=== PATIENT | female | born 1970 | race American Indian/Alaskan Native ===

== ENCOUNTER 2017-10-19 11:09 | Outpatient (CLI) | payer BC ==
--- NOTE | 2017-10-19 15:38 | Mammography Report ---
BILATERAL DIGITAL SCREENING MAMMOGRAM with CAD: 10/19/17 11:09:00 CLINICAL: Routine screening. COMPARISON:None. FINDINGS: There are bilateral scattered fibroglandular densities. Right asymmetries require additional imaging.No architectural distortion or suspicious calcifications.The left breast is negative. IMPRESSION: Right asymmetries requiring further workup. BI-RADS CATEGORY: 0 -- Additional Imaging Evaluation Required RECOMMENDATION: Recall for right lateralmedial and spot magnification MLO and CC views and right breast ultrasound if needed. ACR BI-RADS MAMMOGRAPHIC CODES: 0 = Needs additional imaging evaluation; 1 = Negative; 2 = Benign; 3 = Probably benign; 4 = Suspicious; 5 = Malignant; 6 = Known biopsy-proven malignancy COMMENT: 1. Dense breast tissue, i.e., adenosis, fibrocystic changes, etc., may obscure an underlying neoplasm. 2. Approximately 10% of cancers are not detected with mammography. 3. A negative mammography report should not delay biopsy if a clinically suspicious mass is present. COMMENT: Patient follow-up letters are generated via our [employer] application.
== END 2017-10-19 11:10 | disposition home or self-care (01) ==
LOC: MAMMO 11:09
PROVIDERS: ATTEND Obstetrics & Gynecology
DX: Z12.31 Encounter for screening mammogram for malignant neoplasm of breast (principal)
CPT/HCPCS: 77067

== ENCOUNTER 2018-11-19 09:55 | Outpatient (CLI) | payer BC ==
--- NOTE | 2018-11-21 11:59 | Mammography Report ---
DIGITAL SCREENING MAMMOGRAM WITH CAD, 11/19/2018 INDICATION: Routine screening mammography. TECHNIQUE: Digital bilateral 2D mammography was obtained in the craniocaudal and mediolateral obliq ue projections. This examination was interpreted with the benefit of Computer-Aided Detection analysi s. COMPARISON: 10/19/2017 and 09/10/2015 FINDINGS: Breast Density: The breasts are heterogeneously dense, which may obscure small masses. Right parenchymal asymmetries require additional imaging. No architectural distortion or suspicious c alcifications. There is no evidence of dominant mass, suspicious calcifications or architectural dist ortion in the left breast. IMPRESSION: Right asymmetries requiring further workup. Recommend recall for right lateral medial, ro lled CC and spot compression MLO and CC views and right breast ultrasound if needed. Follow up recommendation: Special View: Spot Category 0: Incomplete. Needs additional imaging evaluation and/or prior mammograms for comparison. A "normal" or negative report should not discourage follow up or biopsy of a clinically significant f inding. A written summary of these findings will be mailed to the patient. The patient will be entered into a mammography reporting system which will generate a reminder letter for the patient's next appointmen t at the appropriate interval. The [employer] recommends yearly mammograms starting at age 40 and continuing as l mary as a woman is in good health. Breast MRI is recommended for women with an approximate 20-25% or greater lifetime risk of breast cancer, including women with a strong family history of breast or ova karri cancer or who have been treated for Hodgkin's disease. Signer Name: Washington Washington MD Signed: 11/21/2018 11:55 AM Workstation Name: [id number]
== END 2018-11-19 09:56 | disposition home or self-care (01) ==
LOC: MAMMO 09:55
PROVIDERS: ATTEND Obstetrics & Gynecology
DX: Z12.31 Encounter for screening mammogram for malignant neoplasm of breast (principal)
CPT/HCPCS: 77067

== ENCOUNTER 2019-01-02 10:13 | Outpatient (CLI) | payer BC ==
--- NOTE | 2019-01-02 11:03 | Mammography Report ---
DIGITAL RIGHT DIAGNOSTIC MAMMOGRAM WITH CAD, WITHOUT TOMOSYNTHESIS 01/02/2019 INDICATION: SPOT COMPRESSION/INCONCLUSIVE MAMMO TECHNIQUE: Digital right mammographic imaging was performed. Spot compression views were obtained. This examination was interpreted with the benefit of Computer-aided Detection analysis. COMPARISON: 11/19/2018 screening. Breast Density: The breasts are heterogeneously dense, which may obscure small masses. FINDINGS: Right lateral, rolled CC and spot compression views were obtained and are negative. Satisfa ctory effacement of asymmetries. No architectural distortion. IMPRESSION: No mammographic evidence of malignancy. Follow up recommendation: Routine BI-RADS Category 1: Negative. A "normal" or negative report should not discourage follow up or biopsy of a clinically significant f inding. A written summary of these findings will be mailed to the patient. The patient will be entered into a mammography reporting system which will generate a reminder letter for the patient's next appointmen t at the appropriate interval. According to the [employer], yearly mammograms are recommended starting at age 40 and continuing as long as a woman is in good health. Breast MRI is recommended for women with an tammy roximately 20-25% or greater lifetime risk of breast cancer, including women with a strong family his tory of breast or ovarian cancer and women who have been treated for Hodgkin's disease. Signer Name: Washington Washington MD Signed: 01/02/2019 10:58 AM Workstation Name: [id number]
== END 2019-01-02 10:14 | disposition home or self-care (01) ==
LOC: MAMMO 10:13
PROVIDERS: ATTEND Obstetrics & Gynecology
DX: R92.2 Inconclusive mammogram (principal)

== ENCOUNTER 2019-11-27 07:38 | Outpatient (CLI) | payer BC ==
--- NOTE | 2019-11-27 08:46 | Mammography Report ---
BILATERAL DIGITAL SCREENING MAMMOGRAM WITH CAD HISTORY: SCREENING MAMMOGRAM TECHNIQUE: Routine digital mammographic imaging performed. This examination was interpreted with tsering aguilar benefit of Computer-aided Detection analysis. COMPARISON: 01/02/2019, 11/19/2018, 10/19/2017. FINDINGS: Breast Density: scattered fibroglandular appearance of the breast tissue. Digital CC and MLO views demonstrate no mammographic evidence of malignancy. IMPRESSION: No mammographic evidence of malignancy. If the clinical examination remains stable, recommend bilate ral mammogram in approximately one year. BIRADS 1: Negative. FURTHER INFORMATION: According to the [employer], yearly mammograms are recommend ed starting at age 40 and continuing as long as a woman is in good health. Clinical Breast Exams shou ld be part of a periodic health exam-about every 3 years for women in their 20s and 30s and every yea r for women 40 and over. Breast self exam is an option for women starting in their 20s. Any breast ch ronny noted on a breast self exam should be reported promptly to the patient's healthcare provider. Br east MRI is recommended for women with an approximately 20-25% or greater lifetime risk of breast can cer, including women with a strong family history of breast or ovarian cancer and women who have been treated for Hodgkin's disease. A negative Mammography report should not discourage follow up or biopsy of a clinically significant f inding and/or abnormality. Dense breast tissue may obscure small neoplasms. The patient will be entered into a reminder system with a target due date for the next screening mamm ogram. Signer Name: Bernardo Soto MD Signed: 11/27/2019 8:41 AM Workstation Name: [id number]
== END 2019-11-27 07:39 | disposition home or self-care (01) ==
LOC: MAMMO 07:38
PROVIDERS: ATTEND Obstetrics & Gynecology
DX: Z12.31 Encounter for screening mammogram for malignant neoplasm of breast (principal)
CPT/HCPCS: 77067

== ENCOUNTER 2020-11-30 09:44 | Outpatient (CLI) | payer OTHER ==
--- NOTE | 2020-11-30 11:54 | Mammography Report ---
DIGITAL SCREENING MAMMOGRAM WITH CAD, 11/30/2020 CLINICAL INFORMATION / INDICATION: Routine screening mammography. TECHNIQUE: Digital bilateral 2D mammography was obtained in the craniocaudal and mediolateral obliqu e projections. This examination was interpreted with the benefit of Computer-Aided Detection analysis . COMPARISON: 11/27/2019, 01/02/2019, 11/19/2018 FINDINGS: Breast Density: There are scattered areas of fibroglandular density. No dominant mass, suspicious calcifications, or architectural distortion in either breast. IMPRESSION: No mammographic evidence of malignancy. Follow up recommendation: Routine yearly BI-RADS Category 1: Negative. A "normal" or negative report should not discourage follow up or biopsy of a clinically significant f inding. A written summary of these findings will be mailed to the patient. The patient will be entered into a mammography reporting system which will generate a reminder letter for the patient's next appointmen t at the appropriate interval. The [employer] recommends yearly mammograms starting at age 40 and continuing as l mary as a woman is in good health. Breast MRI is recommended for women with an approximate 20-25% or greater lifetime risk of breast cancer, including women with a strong family history of breast or ova karri cancer or who have been treated for Hodgkin's disease. Signer Name: Brianna Michael MD Signed: 11/30/2020 11:50 AM Workstation Name: [id number]
== END 2020-11-30 09:45 | disposition home or self-care (01) ==
LOC: MAMMO 09:44
PROVIDERS: ATTEND Obstetrics & Gynecology
DX: Z12.31 Encounter for screening mammogram for malignant neoplasm of breast (principal)
CPT/HCPCS: 77067

== ENCOUNTER 2020-12-18 07:02 | Day surgery (SDC) | payer OTHER ==
--- NOTE | 2020-12-16 10:19 | History and Physical Report ---
History of Present Illness Date of examination: 12/11/20 Date of admission: 12/18/20 Chief complaint: here for surgery History of present illness: Visit Type: Pre-Op CC: no complaints. History of Present Illness: pt. presents for Pre-Op VIsit; no c/o. Surgery is scheduled for 12/18/2020. Mask, Patient denies fever, cough, shortness of breath and exposure to COVID-19. .....................................................................Celestinebryontyron Diez December 11, 2020 9:15 AM Pt presents for preop apt for BTL . All risk/benefits/alternatives were d/w pt and questions were addressed and answered. She desires placement of fleshi clips for the procedrue. Risk of failure was d/w compared to salpingectomy as well as small risk of ovarian cancers related to fibria of the tubes were d/w pt. She expressed understanding and desires the felshi clips. Vital Signs: Patient Profile: 50 Years Old Female Height: 62 inches (157.48 cm) Weight: 207 pounds BMI: 37.86 Temp: 98.0 degrees F BP sittin / 74 (left arm) Menstrual History: LMP - Character: no menses-DEPO Current Method of Contraception: Depo-Provera Past History : 3 Term Births: 1 Premature Births: 0 Living Children: 1 Para: 1 Mult. Births: 0 Prev : 0 Prev. attempt? 0 Aborta: 2 Elect. Ab: 2 Spont. Ab: 0 Ectopics: 0 TIMBER HAND History Operations: Benign bubba tumor removed (2014) D&C: x2 EAB Abnormal PAP: positive Uterine Anomaly: negative Infection History HIV Risk Eval: no Personal hx. of genital herpes: no Hx of STD: Trichomonas Active Medications (reviewed today): DEPO-PROVERA 150 MG/ML INTRAMUSCULAR SUSPENSION (MEDROXYPROGESTERONE ACETATE) 1 inj x every 12 weeks ZYRTEC ALLERGY TABLET (CETIRIZINE HCL TABS) B-12 CAPSULE (CYANOCOBALAMIN CAPS) HYZAAR TABLET (LOSARTAN POTASSIUM-HCTZ TABS) Current Allergies (reviewed today): * ASPRIN (Critical) * PENICILLIN (Critical) Past Medical History: Reviewed history from 11/23/2020 and no changes required: Ovarian Cysts Hyperlipidemia Past Surgical History: Reviewed history from 11/23/2020 and no changes required: Benign bubba tumor removed (2014) D&C: x2 EAB Family History Summary: Reviewed history Last on 11/23/2020 and no changes required:12/17/2020 Other Family Member - Has No Family History of Ovarvian Cancer - Entered On: 03/30/2017 Other Family Member - Has No Family History of Colon Cancer - Entered On: 03/30/2017 Other Family Member - Has Family History Breast Cancer - Entered On: 03/30/2017 Other Family Member - Has Family History of Hypertension - Entered On: 03/30/2017 Other Family Member - Has Family History of Diabetes - Entered On: 03/30/2017 Social History: Reviewed history from 09/14/2017 and 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 Risk Factors: Smoked Tobacco Use: Never smoker Smokeless Tobacco Use: Never Passive Smoke Exposure: no HIV High Risk Behavior: no Exercise: no Seatbelt Use: 100 % PAP Smear History: Date of Last PAP Smear: 11/23/2020 Results: Normal Alcohol Use: yes Type: occ Drinks per day: social Drug Use: no [ROS-CCC] [Labs In-House] Physical Exam Appearance: well developed, well nourished, no acute distress Other Exams Lungs: no rales, rhonchi, or wheezes Heart: S1, S2, no murmur, rub, or gallop Abdomen: soft, non-tender, no masses, bowel sounds normal Extremities: normal alignment, no joint enlargement, crepitus, masses or tenderness; normal tone and strength Genitourinary Exam Comments: deferred until EUA Past History Past Medical History: other (see hpi) Past Surgical History: other (see hpi) TIMBER HAND History: other (see hpi) Family/Genetic History: other (see hpi) Social history: other (see hpi) Medications and Allergies Allergies Allergy/AdvReac Type Severity Reaction Status Date / Time aspirin Allergy THROAT Unverified 12/14/20 07:22 CLOSES UP Penicillins Allergy Swelling Verified 12/14/20 07:25 Home Medications Medication Instructions Recorded Confirmed Last Taken Type Cyanocobalamin (Vitamin B-12) 2,500 mcg PO QWEEK 12/14/20 12/14/20 Unknown History [Vitamin B12] Losartan/Hydrochlorothiazide 1 each PO DAILY 12/14/20 12/14/20 Unknown History [Losartan-Hctz 100-12.5 mg Tab] Review of Systems All systems: negative - Physical Exam Cardiovascular: Normal S1, Normal S2 Lungs: Positive: Clear to auscultation, Normal air movement Abdomen: Positive: normal appearance, soft. Negative: distention, tenderness, guarding Genitourinary (Female): Positive: other (deferred until EUA) Extremities: Positive: normal. Negative: tenderness, edema Deep Tendon Reflex Grade: Normal +2 Results Result Diagrams: 12/16/20 10:15 12/16/20 10:15 All other labs normal. Assessment and Plan - Patient Problems (1) Encounter for sterilization Status: Acute Plan to address problem: -admit for above stated procedure -consent signed and placed on the chart.
[2020-12-16 10:51] LABS: Hematocrit 46.3 % (30.3-42.9); Hemoglobin 15.1 gm/dl (10.1-14.3); Mean Corpuscular HGB Conc 33 % (30-34); Mean Corpuscular Volume 84 fl (79-97); Platelet Count 261 K/mm3 (140-440); Red Cell Distribution Width 14.1 % (13.2-15.2)
[2020-12-16 11:08] LABS: BUN/Creatinine Ratio 11; Blood Urea Nitrogen 10 mg/dL (7-17); Calcium 9.1 mg/dL (8.4-10.2); Hemolysis Index 15
[~2020-12-18 07:02] MED LIST: ACETAMINOPHEN 500 MG TAB PO SCH; GABAPENTIN 300 MG CAP PO NR; LACTATED RINGERS 1,000 ML IV SCH; MIDAZOLAM 2 MG/2 ML INJ IV NR; SCOPOLAMINE TRANSDERMAL PATCH 72 HR TD NR
[2020-12-18] MEDS ORDERED: BUPIVACAINE/PF (0.5%) 5 MG/1 ML 30 ML VIAL INFILTRATI ONE ×2 (07:16→08:33)
[2020-12-18] MEDS ORDERED: oxyCODONE /ACETAMINOPHEN 5-325MG TAB PO PRN (07:31)
[2020-12-18] MEDS ORDERED: ONDANSETRON 4 MG/2 ML INJ IV PRN (07:31)
[2020-12-18] MEDS ORDERED: HYDROmorphone 1 MG/1 ML INJ IV PRN (07:31)
--- NOTE | 2020-12-18 07:31 | Anesthesia Day of Surgery ---
Anesthesia Day of Surgery - Day of Surgery Patient Examined: Yes Patient H&P Reviewed: Yes Patient is NPO: Yes
--- NOTE | 2020-12-18 07:31 | Anesthesia Consultation ---
Anesthesia Consult and Med Hx Date of service: 12/18/20 - Airway Anesthetic Teeth Evaluation: Good ROM Head & Neck: Adequate Mental/Hyoid Distance: Adequate Mallampati Class: Class II Intubation Access Assessment: Probably Good - Pre-Operative Health Status ASA Pre-Surgery Classification: ASA2 Proposed Anesthetic Plan: General - Pulmonary Hx Smoking: No Hx Respiratory Symptoms: No - Cardiovascular System Hx Hypertension: Yes Hx Heart Attack/AMI: No - Central Nervous System CVA: No - Endocrine Hx Renal Disease: No Hx Liver Disease: No Hx Insulin Dependent Diabetes: No Hx Non-Insulin Dependent Diabetes: No Hx Thyroid Disease: No - Other Systems Hx Obesity: Yes (BMI 37) - Additional Comments Anesthesia Medical History Comments: No hx anesthetic complications.
[2020-12-18] MEDS ORDERED: LIDOCAINE MPF (2%) 20 MG/1 ML VIAL 5 ML ONE (07:39)
[2020-12-18] MEDS ORDERED: ROCURONIUM 50 MG/5 ML INJ IV ONE (07:39)
[2020-12-18] MEDS ORDERED: propofoL 200 MG/20 ML VIAL IV ONE (07:40)
[2020-12-18] MEDS ORDERED: fentaNYL 100 MCG/2 ML INJ ONE (07:40)
[2020-12-18] MEDS ORDERED: GENTAMICIN/NS 80 MG/100 ML 100 ML IV ONE (07:46)
[2020-12-18] MEDS ORDERED: NEOSTIGMINE 10MG/10 ML INJ MDV ONE (08:33)
[2020-12-18] MEDS ORDERED: dexAMETHasone 20 MG/5 ML VIAL ONE (08:33)
[2020-12-18] MEDS ORDERED: GLYCOPYRROLATE 0.4 MG/2 ML INJ ONE (08:33)
[2020-12-18] MEDS ORDERED: ONDANSETRON 4 MG/2 ML INJ ONE (08:33)
--- NOTE | 2020-12-18 08:56 | Operative Report ---
Operative Report Operative Report: Date of procedure: 12/18/2020 Pre-operative diagnosis: Desires permanent sterilization Post-operative diagnosis: Same Procedure name(s): Laparoscopic bilateral tubal ligation via placement of Filshie clips Exam under anesthesia Surgeon: Erin Pires MD Building Principal: ANUJA Anesthesia: General endotracheal anesthesia EBL: Minimal Urine output: 100 mL of clear urine out via straight catheterization prior to the onset of the procedure. Fluids: 900 mL Findings: Grossly normal fallopian tubes bilaterally normal ovaries bilaterally normal uterus. Indications: Patient desires sterilizon. All risks benefits and alternatives were discussed with the patient. Given the risks patient desired bilateral marv cement of Filshie clips. Consents were signed and placed on the chart. Procedure: Patient was taken to the operating room and which she was placed under general endotracheal anesthesia. Patient was then prepped and draped in sterile fashion and placed in dorsal lithotomy position in Jean stirrups. Patient underwent straight catheterization. Attention was then turned to the vagina in which a sponge stick was placed. Attention was then turned to the umbilicus and which an infraumbilical incision was made with the scalpel 5mm trocar was placed using direct visualization with the camera. Abdomen was then insufflated with gas. Under direct visualization a 8 mm trocar were placed. Attention was turned to the right fallopian tube in which the Filshie clip fisheries inspector was placed inside the abdomen Filshie clips were placed encompassing the entire tube. This was repeated on the left side. All instruments were removed from the abdomen. All gas was also released from the abdomen. The skin was approximated with 4-0 Monocryl in a subcuticular stitch. The patient tolerated procedure well. Sponge, lap, and needle counts were all correct x3 the patient was taken to the recovery room awake and in stable condition.
--- NOTE | 2020-12-18 08:57 | Short Stay Summary ---
Short Stay Documentation - History Social history: other (see hpi) - Allergies and Medications Current Medications: Allergies aspirin Allergy (Unverified 12/14/20 07:22) THROAT CLOSES UP Penicillins Allergy (Verified 12/14/20 07:25) Swelling Home Medications Medication Instructions Recorded Confirmed Last Taken Type Cyanocobalamin (Vitamin B-12) 2,500 mcg PO QWEEK 12/14/20 12/18/20 12/11/20 09:00 History [Vitamin B12] Losartan/Hydrochlorothiazide 1 each PO DAILY 12/14/20 12/18/20 12/17/20 09:00 History [Losartan-Hctz 100-12.5 mg Tab] Ibuprofen [Motrin 800 MG tab] 800 mg PO Q8HR PRN #30 tablet 12/18/20 Unknown Rx oxyCODONE /ACETAMINOPHEN [Percocet 1 tab PO Q4HR #10 tab 12/18/20 Unknown Rx 5/325] Active Medications Acetaminophen (Acetaminophen 500 Mg Tab) 1,000 mg PO PREOP CONRADO Last Admin: 12/18/20 07:20 Dose: 1,000 mg Documented by: Gabapentin (Gabapentin 300 Mg Cap) 300 mg PO PREOP NR Stop: 12/18/20 23:59 Last Admin: 12/18/20 07:20 Dose: 300 mg Documented by: Hydromorphone HCl (Hydromorphone 1 Mg/1 Ml Inj) 0.5 mg IV Q10MIN PRN PRN Reason: Pain , Severe (7-10) Lactated Ringer's (Lactated Ringers) 1,000 mls @ 100 mls/hr IV DIRECT CONRADO Stop: 12/18/20 23:59 Last Admin: 12/18/20 07:29 Dose: 100 mls/hr Documented by: Clindamycin HCl (Cleocin 900 Mg/50 Ml) 900 mg in 50 mls @ 100 mls/hr IV PREOP NR; Protocol Stop: 12/18/20 19:00 Midazolam HCl (Midazolam 2 Mg/2 Ml Inj) 2 mg IV PREOP NR Stop: 12/18/20 23:59 Last Admin: 12/18/20 07:47 Dose: 2 mg Documented by: Ondansetron HCl (Ondansetron 4 Mg/2 Ml Inj) 4 mg IV ONCE PRN PRN Reason: Nausea And Vomiting Oxycodone/Acetaminophen (Oxycodone /Acetaminophen 5-325mg Tab) 1 tab PO ONCE PRN PRN Reason: Pain, Moderate (4-6) Scopolamine (Scopolamine Transdermal Patch 72 Hr) 1 each TD PREOP NR Stop: 12/18/20 23:59 Last Admin: 12/18/20 07:35 Dose: 1 each Documented by: - Discharge Diagnoses (1) Encounter for sterilization Status: Acute Short Stay Discharge Plan Wound: open to air, keep clean and dry Additional Instructions: KEEP SCHEDULED APT IN THE OFFICE IN ONE WEEK WITH DR. LABOY Follow up with: DAJA PASTRANA MD [Primary Care Provider] - 7 Days Prescriptions: Ibuprofen [Motrin 800 MG tab] 800 mg PO Q8HR PRN #30 tablet PRN Reason: Pain, Moderate (4-6) oxyCODONE /ACETAMINOPHEN [Percocet 5/325] 1 tab PO Q4HR #10 tab
--- NOTE | 2020-12-18 11:02 | Post Anesthesia Evaluation ---
- Post Anesthesia Evaluation Patient Participated: Yes Airway Patent: Yes Stable Respiratory Function: Yes Nausea/Vomiting: No Temp > 96.8F: Yes Pain Manageable: Yes Adequeate Hydration: Yes Anesthesia Complications: No
[2020-12-18 14:15] VITALS: BP 142/82
== END 2020-12-18 10:50 | disposition home or self-care (01) ==
LOC: OR 07:02
PROVIDERS: ATTEND Obstetrics & Gynecology
DX: Z30.2 Encounter for sterilization (principal); I10 Essential (primary) hypertension; E66.9 Obesity, unspecified; K21.9 Gastro-esophageal reflux disease without esophagitis; Z79.899 Other long term (current) drug therapy; Z98.890 Other specified postprocedural states; Z88.0 Allergy status to penicillin; Z88.8 Allergy status to other drugs, medicaments and biological substances; Z20.822 Contact with and (suspected) exposure to COVID-19
CPT/HCPCS: 36415; 58671; 80048; 84703; 85027; J1100; J1170; J1580; J1815; J2250; J2405; J2704; J2710; J3010; J3490; J7120; J7502; U0003